=== PATIENT | male | born 1940 | race Caucasian/White ===

== ENCOUNTER 2016-08-10 05:46 | Day surgery (SDC) | payer OTHER ==
[~2016-08-10] VITALS: Ht 177.8 cm; Wt 88.3 kg
[~2016-08-10 05:46] MED LIST: AMLO10 PO; CARV25TA PO; COUM2TAB PO; COUM5TAB PO; DIGO.125 PO; LISI-360 PO; MECL25CH PO; OMEP20TA39 PO; TAB-TAB PO
[2016-08-10 06:00] VITALS: BP 151/88; PULSE 70; RESP 17; O2SAT 94
[2016-08-10] MEDS ORDERED: POVIDONE IODINE 5% (ANTISEPSIS KIT) 4 APPLICATIONS EACH NARE SCH (06:15)
[2016-08-10] MEDS ORDERED: CHLORHEXIDINE GLUCONATE 2 % 1 PACK (2 CLOTHS) TOPICAL SCH (06:15)
[2016-08-10] MEDS ORDERED: NS 1000 ML IV SCH (06:15)
[2016-08-10] MEDS ORDERED: ceFAZolin 2 GM PREMIX 50 ML IV SCH (06:15)
[2016-08-10] MEDS ORDERED: NO Heparin, Lovenox, Coumadin at least 12 hours prior to procedure. PRN (06:15)
[2016-08-10] MEDS ORDERED: LORazepam 1 MG TAB SL SCH (06:15)
[2016-08-10] MEDS ORDERED: Hold AM Insulin & AM Hypoglycemic medications in diabetic patients PRN (06:15)
[2016-08-10] MEDS ORDERED: MUPIROCIN 2% OINT 1 APPLIC/GM SYR NASAL SCH (06:15)
[2016-08-10] MEDS ORDERED: CHLORHEXIDINE GLUCONATE 2 % 1 PACK (2 CLOTHS) TOPICAL PRN (06:30)
[2016-08-10] MEDS ORDERED: SODIUM CHLORID 0.9% 500 ML IV PRN (06:30)
[2016-08-10] MEDS ORDERED: LACTATED RINGER'S 1000 ML IV PRN (06:30)
[2016-08-10] MEDS ORDERED: POVIDONE IODINE 5% (ANTISEPSIS KIT) 4 APPLICATIONS EACH NARE PRN (06:30)
[2016-08-10] MEDS ORDERED: INSULIN HUMAN REGULAR 1,000 UNITS/10 ML VIAL SQ PRN (06:30)
[2016-08-10] MEDS ORDERED: METOPROLOL TARTRATE 25 MG TAB PO PRN (06:30)
[2016-08-10] MEDS ORDERED: CARV25TA PO (06:46)
[2016-08-10] MEDS ORDERED: VALS1TAB65 PO (06:46)
[2016-08-10] MEDS ORDERED: MEMA28CA PO (06:46)
[2016-08-10] MEDS ORDERED: LANO0.1212 PO (06:46)
[2016-08-10] MEDS ORDERED: RIVA1.5C PO (06:46)
[2016-08-10] MEDS ORDERED: POTA-163 PO (06:46)
[2016-08-10] MEDS ORDERED: PRAV40TA2 PO (06:46)
[2016-08-10] MEDS ORDERED: MECL25CH CHEW (06:46)
[2016-08-10] MEDS ORDERED: WARF-23 PO (06:46)
[2016-08-10] MEDS ORDERED: OMEG100010 PO (06:46)
[2016-08-10] MEDS ORDERED: SODIUM CHLOR 0.9% 250 ML INJ 250 ML ONE (07:09)
[2016-08-10] MEDS ORDERED: VANCOMYCIN HCL 1000 MG VIAL ONE (07:09)
[2016-08-10] MEDS ORDERED: PROPOFOL 200 MG/20 ML AMP IV ONE (07:25)
[2016-08-10] MEDS ORDERED: MIDAZOLAM HCL 2 MG/2 ML VIAL ONE (07:28)
[2016-08-10] MEDS ORDERED: LIDOCAINE HCL 2% 50 ML VIAL ONE (07:43)
[2016-08-10] MEDS ORDERED: VANCOMYCIN 500 MG VIAL ONE (07:43)
[2016-08-10 07:51] LABS: AUTOMATED NEUTROPHIL # 3.8 TH/MM3 (1.8-7.7); BASOPHIL % 0.6 % (0.0-2.0); EOSINOPHIL # 0.2 TH/MM3 (0-0.4); EOSINOPHIL % 3.4 % (0.0-4.0); HEMATOCRIT 38.6 % (39.0-51.0); HEMO FLAGS DIFF FINAL; LYMPHOCYTE # 2.4 TH/MM3 (1.0-4.8); MEAN CORPUSCULAR HEMOGLOBIN 29.5 PG (27.0-34.0); MEAN CORPUSCULAR HGB CONC 35.1 % (32.0-36.0); MONO % 6.1 % (0.0-8.0); NEUT % 54.9 % (16.0-70.0); PLATELET COUNT 136 TH/MM3 (150-450); WHITE BLOOD COUNT 6.8 TH/MM3 (4.0-11.0)
[2016-08-10 07:57] LABS: APTT (PATIENT) 29.4 SEC (24.3-30.1); INTERNATIONAL NORMALIZED RATIO 1.3 RATIO
[2016-08-10 08:02] LABS: BICARBONATE 30.4 MEQ/L (21.0-32.0)
--- NOTE | 2016-08-10 08:28 | PD.CARD ---
Dual Defib Replacement PROCEDURE DATE: Aug 10, 2016 NYHA Classification: Class II (Mild) Prevention: Secondary Dual Defib Replacement PROCEDURE 1. Dual-chamber defibrillator removal. 2. Dual-chamber defibrillator replacement. 3. Pocket revision. Mr. Willoughby is a 75 -year-old male with previous hx of congestive heart failure, previous defib shock in May 2009 due to ventricular tachycardia, now EF 62%, Defibrillator currently end of life, admitted for generator replacement and device testing. The risks, the nature and the benefit of the procedure clearly stated to him. The risks include pneumothorax, cardiac perforation, stroke and even . He understood and agreed to proceed. This is secondary prevention. PROCEDURE After written informed consent was obtained, the patient was brought to the EP lab where he was prepped and draped in the usual sterile fashion. Conscious sedation was initiated and maintained throughout the procedure by anesthesiologist. Once sedation was verified, the left infraclavicular area was anesthetized with 2% Xylocaine. Using #11 blade scalpel, a 3-cm incision was made over the existing generator. The incision was then taken down deep fascial layers generator exposed. Once exposed, it was removed from the pocket. Scar tissue was removed around the lead pocket revision was performed. Pocket was expanded. Then, the lead was disconnected from the generator and tested. After adequate pacing and sensing thresholds were obtained. The leads were connected to the new generator and placed into the pocket. Because INR is only 1.3, I decided not to proceeded with NIPS. I did proceed with wound closure. The deep fascial layer was approximated using 2-0 Vicryl suture in a continuous fashion. The subcutaneous layer was approximated using 2-0 Vicryl suture in a continuous fashion. The subcuticular layer was approximated using 2-0 Vicryl suture in a continuous fashion. Dermabond adhesive was applied to the wound followed by sterile pressure dressing. There was no complication. The patient tolerated procedure. Blood loss minimal. 1. Explanted hardware: The explanted defibrillator is a [employer] model number [id number], serial number [id number]. That was implanted in 2009. For information about existing lead please refer to previous dictation. 2. Implanted hardware: The implanted defibrillator generator is a [employer], model number [id number], serial number [id number]. 3. Threshold: The right atrial pacing threshold cannot be measured. Patient in atrial fibrillation. Lead impedance 490 ohms and Fib-wave at 0.5 mV. The right ventricular pacing threshold in the bipolar mode was 0.5 volts at 0.4 milliseconds. Lead impedance 490 ohms and R-wave at 12.0 mV. 4. Settings: The device is set in a VVI 40, Defibrillatory portioned for two zones, one zone for ventricular tachycardia between 160 to 240 beats per minute. Initial therapy consists of one burst of ATP, one ramp, 81%, 10 pulses, 10 ms decremental followed by 20 then 30and all subsequent shocks at 40 joules defibrillatory shock. Second zone for ventricular fibrillation above 240 beats per minute, first therapy at 30 and all subsequent shocks at 40 joule defibrillatory shock. CONCLUSIONS Successful defibrillator removal, defibrillator replacement. COMMENT/RECOMMENDATIONS The patient will be transferred to telemetry unit. He will be observed, when stable can be discharged home Bruce Tatum MD Aug 10, 2016 08:28
[2016-08-10] MEDS ORDERED: ONDANSETRON HCL 4 MG/2 ML VIAL IV PRN (08:30)
[2016-08-10] MEDS ORDERED: ACETAMINOPHEN/CODEINE 300 MG/30 MG TAB PO PRN ×2 (08:30)
[2016-08-10] MEDS ORDERED: ACET300T2 PO (08:31)
[2016-08-10] MEDS ORDERED: CEPH-460 PO (08:31)
--- NOTE | 2016-08-10 10:12 | EKG ---
Date Performed: 08/10/2016 Time Performed: 06:38:48 PTAGE: 75 years EKG: Atrial fibrillation Demand pacing. 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
== END 2016-08-10 10:39 | disposition home or self-care (01) ==
LOC: HDOC 05:46 → HDIC 05:48 → HDOC 10:39
PROVIDERS: ATTEND Internal Medicine Interventional Cardiology
DX: Z45.02 Encounter for adjustment and management of automatic implantable cardiac defibrillator (principal); I47.2 Ventricular tachycardia; I45.2 Bifascicular block; I48.91 Unspecified atrial fibrillation; I42.9 Cardiomyopathy, unspecified; I10 Essential (primary) hypertension; Z79.01 Long term (current) use of anticoagulants
CPT/HCPCS: 00530; 33263; 80048; 85025; 85610; 85730; 86850; 86900; 86901; 93005; C1721; J2250; J3010; J3370; J7050

== ENCOUNTER 2017-05-04 15:44 | Emergency (ER) | payer OTHER ==
[~2017-05-04 15:44] MED LIST changes: +ACET300T2 PO; -AMLO10 PO; +CEPH-460 PO; -COUM2TAB PO; -COUM5TAB PO; -DIGO.125 PO; +LANO0.1212 PO; -LISI-360 PO; +MECL25CH CHEW; -MECL25CH PO; +MEMA28CA PO; +OMEG100010 PO; -OMEP20TA39 PO; +POTA-163 PO; +PRAV40TA2 PO; +RIVA1.5C PO; -TAB-TAB PO; +VALS1TAB65 PO; +WARF-23 PO
[2017-05-04 15:46] VITALS: BP 161/98; PULSE 80; RESP 18; TEMP 98.3; O2SAT 97
[2017-05-04] MEDS ORDERED: MECL-62 PO (15:56)
[2017-05-04] MEDS ORDERED: PRAV80TA2 PO (15:56)
[2017-05-04] MEDS ORDERED: WARF-18 PO (15:56)
[2017-05-04] MEDS ORDERED: NAME10TA PO (15:56)
--- NOTE | 2017-05-04 16:19 | PD ---
HPI Chief Complaint: Altered Mental Status Time Seen by Provider: 15:59 Travel History International Travel<30 days: No Contact w/Intl Traveler<30days: No Traveled to known affect area: No History of Present Illness HPI This patient was sent over from the assisted-living facility. I am told he got into an argument with his and became agitated. They sent him over here for agitation. He does have history of dementia. Patient has no physical symptoms. He is calm and cooperative at this time. He feels well. He denies injury or fever or headache. No vomiting or diarrhea. Severity is mild. No alleviating factors. Symptoms likely exacerbated by his dementia. PFSH Past Medical History ADD: Yes Arthritis: Yes (DEGENERATIVE (IN HANDS)) Asthma: No Atrial Fibrillation: Yes Autoimmune Disease: No Blood Disorders: No Anxiety: No Depression: No Heart Rhythm Problems: No Cancer: No Cardiac Catheterization: No Cardiovascular Problems: Yes High Cholesterol: Yes Chemotherapy: No Chest Pain: No Congestive Heart Failure: Yes COPD: No Cerebrovascular Accident: Yes Coronary Artery Disease: Yes Diabetes: No Diminished Hearing: No Endocrine: No Gastrointestinal Disorders: Yes GERD: Yes Glaucoma: No Genitourinary: No Headaches: Yes Hepatitis: Yes (A & C) Hiatal Hernia: No Hypertension: Yes Immune Disorder: No Implanted Vascular Access Dvce: Yes Kidney Stones: No Musculoskeletal: Yes Neurologic: Yes (AGENT ORANGE EXPOSURE) Psychiatric: No Reproductive: No Respiratory: No Migraines: No Myocardial Infarction: Yes (X3) Radiation Therapy: No Renal Failure: No Seizures: No Sleep Apnea: No Thyroid Disease: No Ulcer: No Past Surgical History Abdominal Surgery: Yes (BILATERAL HERNIAS REPAIRED, EXPLORATORY SPLEEN SURGERY ) AICD: Yes Appendectomy: Yes Arteriovenous Shunt: No Body Medical Devices: 3 STENTS Cardiac Surgery: Yes (ACID) Cholecystectomy: No Coronary Artery Bypass Graft: No Coronary Stent: Yes (THREE) Ear Surgery: Yes Endocrine Surgery: No Eye Surgery: No Genitourinary Surgery: Yes Gynecologic Surgery: No Insulin Pump: No Joint Replacement: No Neurologic Surgery: Yes (HERNIATED DISC) Oral Surgery: Yes Pacemaker: Yes (ST BOBBY) Thoracic Surgery: No Tonsillectomy: Yes Other Surgery: Yes (esophageal dilatation) Family History Family Myocardial Infarction: Yes Social History Alcohol Use: Yes Tobacco Use: No Substance Use: No Allergies-Medications (Allergen,Severity, Reaction): Coded Allergies: MRI PRECAUTION (Verified Allergy, Severe, NON REVO PACEMAKER. 03/15/12 LRS, 05/28/12) Reported Meds & Prescriptions Reported Meds & Active Scripts Active Reported Pravastatin 80 Mg Tab 80 Mg PO DAILY Namenda (Memantine) 10 Mg Tab 10 Mg PO BID Meclizine (Meclizine HCl) 25 Mg Tab 25 Mg PO Q6HR PRN Warfarin 2.5 Mg Tab 2.5 Mg PO , , FR Warfarin 5 Mg Tab 5 Mg PO TRIANA, , , SA Valsartan 160 Mg Tab 80 Mg PO DAILY Potassium Chloride ER (Potassium Chloride) 20 Meq Tab 20 Meq PO DAILY Review of Systems General / Constitutional: No: Fever Eyes: No: Visual changes HENT: No: Headaches Cardiovascular: No: Chest Pain or Discomfort Respiratory: No: Shortness of Breath Gastrointestinal: No: Abdominal Pain Genitourinary: No: Dysuria Musculoskeletal: No: Pain Skin: No Rash Neurologic: No: Weakness Psychiatric: No: Depression Endocrine: No: Polydipsia Hematologic/Lymphatic: No: Easy Bruising Physical Exam Narrative GENERAL: Well-nourished, well-developed patient in no apparent distress. SKIN: Focused skin assessment reveals no rash and nodules. Skin is Warm and dry. HEAD: Atraumatic. Normocephalic. EYES: Pupils equal and round. No scleral icterus. No injection or drainage. ENT: No nasal bleeding or discharge. Mucous membranes pink and moist. NECK: Trachea midline. No JVD. CARDIOVASCULAR: Regular rate and rhythm. No murmur appreciated. RESPIRATORY: No accessory muscle use. Clear to auscultation. Breath sounds equal bilaterally. GASTROINTESTINAL: Abdomen soft, non-tender, nondistended. Hepatic and splenic margins not palpable. MUSCULOSKELETAL: No obvious deformities. No clubbing. No cyanosis. No edema. NEUROLOGICAL: Awake and alert. No obvious cranial nerve deficits. Motor grossly within normal limits. Normal speech. PSYCHIATRIC: Appropriate mood and affect; insight and judgment seems fairly reasonable. Data Data Last Documented VS Vital Signs Date Time Temp Pulse Resp B/P (MAP) Pulse Ox O2 Delivery O2 Flow Rate FiO2 05/04/17 17:46 83 16 125/83 (97) 99 Room Air 05/04/17 15:46 98.3 Orders Orders Iv Access Insert/Monitor (05/04/17 16:16) Complete Blood Count With Diff (05/04/17 16:16) Basic Metabolic Panel (Bmp) (05/04/17 16:16) Urinalysis - C+S If Indicated (05/04/17 16:16) Cath For Specimen (05/04/17 17:24) Urine Culture (05/04/17 17:35) Ed Discharge Order (05/04/17 18:34) Labs Laboratory Tests Test 05/04/17 16:25 05/04/17 17:35 White Blood Count 5.5 TH/MM3 Red Blood Count 4.65 MIL/MM3 Hemoglobin 13.4 GM/DL Hematocrit 40.4 % Mean Corpuscular Volume 87.0 FL Mean Corpuscular Hemoglobin 28.9 PG Mean Corpuscular Hemoglobin Concent 33.2 % Red Cell Distribution Width 12.7 % Platelet Count 136 TH/MM3 Mean Platelet Volume 8.0 FL Neutrophils (%) (Auto) 50.9 % Lymphocytes (%) (Auto) 39.1 % Monocytes (%) (Auto) 6.2 % Eosinophils (%) (Auto) 2.8 % Basophils (%) (Auto) 1.0 % Neutrophils # (Auto) 2.7 TH/MM3 Lymphocytes # (Auto) 2.2 TH/MM3 Monocytes # (Auto) 0.3 TH/MM3 Eosinophils # (Auto) 0.2 TH/MM3 Basophils # (Auto) 0.1 TH/MM3 CBC Comment DIFF FINAL Differential Comment Blood Urea Nitrogen 20 MG/DL Creatinine 1.20 MG/DL Random Glucose 98 MG/DL Calcium Level 8.9 MG/DL Sodium Level 143 MEQ/L Potassium Level 3.9 MEQ/L Chloride Level 107 MEQ/L Carbon Dioxide Level 26.7 MEQ/L Anion Gap 9 MEQ/L Estimat Glomerular Filtration Rate 59 ML/MIN Urine Color YELLOW Urine Turbidity CLEAR Urine pH 6.0 Urine Specific [place] 1.017 Urine Protein NEG mg/dL Urine Glucose (UA) NEG mg/dL Urine Ketones NEG mg/dL Urine Occult Blood TRACE Urine Nitrite NEG Urine Bilirubin NEG Urine Leukocyte Esterase NEG Urine RBC 0-3 /hpf Urine WBC 9-14 /hpf Urine WBC Clumps FEW Urine Squamous Epithelial Cells 0-5 /hpf Microscopic Urinalysis Comment CULTURE INDICATED MDM Medical Decision Making Medical Screen Exam Complete: Yes Emergency Medical Condition: Yes Medical Record Reviewed: Yes Differential Diagnosis Dementia with agitation, anxiety, personality disorder, electrolyte abnormality , UTI Narrative Course I have reviewed the patient's electronic medical record. Urinalysis shows a few white cells and will be cultured. He has no urinary symptoms so I would wait on culture results prior to any treatment here. IV placed CBC is normal Metabolic profile is normal Patient is calm and cooperative and not in the slightest bit agitated. He has no symptoms at all. Stable for return to facility Diagnosis Primary Impression: Agitation states as acute reaction to exceptional (gross) stress Additional Instructions: The patient was advised to follow up with their physician and return if they worsen. Med/Other Pt SpecificInfo: Other Disposition: 01 DISCHARGE HOME Condition: Stable James Hicks MD May 04, 2017 16:19
[2017-05-04 16:46] LABS: AUTOMATED NEUTROPHIL # 2.7 TH/MM3 (1.8-7.7); BASOPHIL # 0.1 TH/MM3 (0-0.2); EOSINOPHIL # 0.2 TH/MM3 (0-0.4); EOSINOPHIL % 2.8 % (0.0-4.0); HEMATOCRIT 40.4 % (39.0-51.0); HEMOGLOBIN 13.4 GM/DL (13.0-17.0); LYMPH % 39.1 % (9.0-44.0); LYMPHOCYTE # 2.2 TH/MM3 (1.0-4.8); MEAN CORPUSCULAR HEMOGLOBIN 28.9 PG (27.0-34.0); MEAN CORPUSCULAR HGB CONC 33.2 % (32.0-36.0); MONO % 6.2 % (0.0-8.0); MONOCYTE # 0.3 TH/MM3 (0-0.9); NEUT % 50.9 % (16.0-70.0); PLATELET COUNT 136 TH/MM3 (150-450); RED BLOOD COUNT 4.65 MIL/MM3 (4.50-5.90); RED CELL DISTRIBUTION WIDTH 12.7 % (11.6-17.2); WHITE BLOOD COUNT 5.5 TH/MM3 (4.0-11.0)
[2017-05-04 16:56] LABS: CALCIUM 8.9 MG/DL (8.5-10.1)
[2017-05-04 16:57] LABS: BICARBONATE 26.7 MEQ/L (21.0-32.0)
[2017-05-04 17:00] LABS: CREATININE 1.2 MG/DL (0.60-1.30)
[2017-05-04 17:46] VITALS: BP 125/83; PULSE 83; RESP 16; O2SAT 99
[2017-05-04 18:05] LABS: BILIRUBIN, URINE NEG (NEG); BLOOD, URINE TRACE (NEG); GLUCOSE,URINE NEG (NEG); KETONE, URINE NEG (NEG); NITRITE,URINE NEG (NEG); URINE LEUKOCYTE ESTERASE NEG (NEG)
[2017-05-04 18:20] LABS: URINE COLOR YELLOW (YELLW/STRAW)
[2017-05-04 18:21] LABS: RBC, URINE 0-3 /hpf (0-3); SQUAMOUS EPITHELIAL CELL URINE 0-5 /hpf (0-5); WHITE BLOOD CELL CLUMPS FEW
[2017-05-04 19:00] VITALS: BP 182/88; PULSE 70; RESP 16; O2SAT 98
[2017-05-04 21:00] VITALS: BP 166/103; PULSE 84; RESP 16; O2SAT 98
== END 2017-05-04 21:37 | disposition home or self-care (01) ==
LOC: PHED 15:44
DX: R45.1 Restlessness and agitation (principal); F43.0 Acute stress reaction; F03.90 Unspecified dementia, unspecified severity, without behavioral disturbance, psychotic disturbance, mood disturbance, and anxiety; I48.91 Unspecified atrial fibrillation; E78.00 Pure hypercholesterolemia, unspecified; I11.0 Hypertensive heart disease with heart failure; I50.9 Heart failure, unspecified; I25.10 Atherosclerotic heart disease of native coronary artery without angina pectoris; K21.9 Gastro-esophageal reflux disease without esophagitis
CPT/HCPCS: 80048; 81001; 85025; 87086; 99283; P9612